=== PATIENT | female | born 1975 | race Caucasian/White ===

== ENCOUNTER 2017-08-27 13:57 | Emergency (ER) | payer SELFPAY ==
[2017-08-27 14:26] LABS: Bilirubin Negative (Negative); Blood, Urine Negative (Negative); Glucose, Urine (Dipstick) Negative (Negative); Ketone, Urine Negative (Negative); Nitrite Negative (Negative); Protein, Urine (Dipstick) Negative (Neg-Trace); Urobilinogen 0.2 mg/dL (0.2-1.0)
[2017-08-27 14:59] LABS: #Eosinphils 0.1 thou/uL (0.0-0.7); #Lymphocytes 2.1 thou/uL (1.20-3.40); #Monocytes 0.4 thou/uL (0.11-0.59); #Neutrophils 5.2 thou/uL (1.40-6.50); %Basophils 0.1 % (0.0-1.0); %Eosinophils 1.9 % (0.0-10.0); %Lymphocytes 26.5 % (21.0-51.0); %Monocytes 5.4 % (0.0-10.0); Hematocrit 38.6 % (36.0-47.0); Mean Platelet Volume 6.8 fL (7.4-10.4); Red Blood Cell (RBC) Count 4.48 mill/uL (4.20-5.40); White Blood Cell (WBC) Count 7.8 thou/uL (4.8-10.8)
[2017-08-27 15:20] LABS: ALT (SGPT) 13 U/L (8-55); AST (SGOT) 9 U/L (5-34); Alkaline Phosphatase 69 U/L (40-150); Anion Gap 9 mmol/L (10-20); BUN (Urea Nitrogen) 9 mg/dL (7.0-18.7); Bilirubin, Total 0.4 mg/dL (0.2-1.2); Calc. Creatinine Clearance 0 mL/min (70-130); Calcium 8.7 mg/dL (7.8-10.44); Carbon Dioxide 27 mmol/L (22-29); Chloride 105 mmol/L (98-107); Estimated GFR-MDRD Greater than 90; Globulin 3.2 g/dL (2.4-3.5); Lipase 7 U/L (8-78); Protein, Total 6.7 g/dL (6.0-8.3)
[2017-08-27] MEDS ORDERED: HYDROcodone/Acetaminophen 5/325 mg Tablet ONE (15:33)
[2017-08-27 16:06] LABS: Amphetamine Not Detected (NotDetected); Methadone Not Detected (NotDetected); Methamphetamine Not Detected (NotDetected)
[2017-08-27] MEDS ORDERED: Ketorolac Tromethamine 30 MG/ML VIAL ONE (16:43)
[2017-08-27] MEDS ORDERED: ISOVUE-370 76%-LOCM 1 ML ONE (17:22)
--- NOTE | 2017-08-27 18:41 | CT ---
CT ABDOMEN AND PELVIS WITH CONTRAST ENHANCEMENT: History: 42-year-old female with abdominal pain. Oral contrast, unfortunately, was not given. IV contrast was administered. FINDINGS: The lung bases are unremarkable. No evidence of free intraperitoneal air is seen. The liver, spleen, and pancreas are unremarkable. The gallbladder has been surgically removed. Adrena l glands and kidneys are unremarkable. There is a nonobstructing upper pole right renal calculus, diameter measuring approximately 6 mm in t he upper pole of the right kidney. The left kidney is unremarkable. No evidence of hydroureteronephro sis is seen. No dilated loops of small bowel or colon are seen. An IUD is present in the uterus. There is a right ovarian cyst or cystic lesion present. IMPRESSION: 1. Right ovary cyst or cystic lesion. 2. Upper pole nonobstructing right renal calculus. POS: [facility]
== END 2017-08-27 18:10 | disposition home or self-care (01) ==
LOC: ERS 13:57
DX: N83.201 Unspecified ovarian cyst, right side (principal); L03.115 Cellulitis of right lower limb; M54.5 Low back pain; E66.9 Obesity, unspecified; Z79.1 Long term (current) use of non-steroidal anti-inflammatories (NSAID)
CPT/HCPCS: 36415; 74177; 80053; 80306; 81003; 81025; 83690; 85025; 96374; J1885

== ENCOUNTER 2017-12-13 13:04 | Emergency (ER) | payer SELFPAY ==
[2017-12-13] MEDS ORDERED: Clindamycin/D5W 600 mg/50 ml Premix Bag ONE (13:31)
[2017-12-13 14:02] LABS: #Basophils 0.1 thou/uL (0.0-0.2); #Eosinphils 0.2 thou/uL (0.0-0.7); #Lymphocytes 1.8 thou/uL (1.20-3.40); #Monocytes 0.4 thou/uL (0.11-0.59); %Basophils 1.4 % (0.0-1.0); %Eosinophils 2.5 % (0.0-10.0); %Lymphocytes 28.5 % (21.0-51.0); %Monocytes 6.1 % (0.0-10.0); %Neutrophils 61.5 % (42.0-75.0); Hemoglobin 12.6 g/dL (12.0-16.0); Mean Corpuscular HGB CONC 32.3 g/dL (32.0-36.0); Mean Corpuscular Hemoglobin 27.9 pg (27.0-31.0); Mean Corpuscular Volume 86.4 fl (81.0-99.0); Platelet Count 275 thou/uL (130-400); RBC Distribution Width 13.8 % (11.5-14.5); Red Blood Cell (RBC) Count 4.52 mill/uL (4.20-5.40); White Blood Cell (WBC) Count 6.5 thou/uL (4.8-10.8)
[2017-12-13 14:22] LABS: Anion Gap 9 mmol/L (10-20); BUN (Urea Nitrogen) 12 mg/dL (7.0-18.7); Calc. Creatinine Clearance 0 mL/min (70-130); Calcium 9.2 mg/dL (7.8-10.44); Carbon Dioxide 24 mmol/L (22-29); Chloride 106 mmol/L (98-107); Estimated GFR-MDRD Greater than 90; Glucose 89 mg/dL (70-105); Potassium 3.9 mmol/L (3.5-5.1); Sodium 135 mmol/L (136-145)
--- NOTE | 2017-12-13 14:51 | RAD ---
RIGHT LEG TWO VIEWS: History: Right leg pain. Comparison: 10-26-16 FINDINGS: The right tibia and fibula are intact. No bony destruction or periosteal reaction is seen to suggest osteomyelitis. Vericosities in the soft tissues of the right leg. Small calcaneal spur is present. IMPRESSION: No acute osseous abnormalities seen. POS: [facility]
== END 2017-12-13 15:00 | disposition home or self-care (01) ==
LOC: ERS 13:04
DX: S81.801D Unspecified open wound, right lower leg, subsequent encounter (principal); L03.115 Cellulitis of right lower limb; E28.2 Polycystic ovarian syndrome; X58.XXXD Exposure to other specified factors, subsequent encounter
CPT/HCPCS: 36415; 80048; 85025; 96365; J3490

== ENCOUNTER 2018-03-07 13:17 | Emergency (ER) | payer OTHER, SELFPAY ==
--- NOTE | 2018-03-07 13:53 | RAD ---
PORTABLE CHEST ONE VIEW: Date: 03-07-18 Time: 1:42 p.m. History: Chest pain. FINDINGS: The heart size is normal. The lungs are expanded without focal areas of consolidation, pneumothorax, or pleural effusions. IMPRESSION: No radiographic evidence of acute cardiopulmonary process. POS: [facility]
[2018-03-07 14:15] LABS: #Eosinphils 0.2 thou/uL (0.0-0.7); #Monocytes 0.6 thou/uL (0.11-0.59); #Neutrophils 6.2 thou/uL (1.40-6.50); %Basophils 0.3 % (0.0-1.0); %Eosinophils 2.6 % (0.0-10.0); %Lymphocytes 22.4 % (21.0-51.0); %Monocytes 6.3 % (0.0-10.0); %Neutrophils 68.4 % (42.0-75.0); Hemoglobin 12.4 g/dL (12.0-16.0); Mean Corpuscular HGB CONC 33.3 g/dL (32.0-36.0); Mean Corpuscular Hemoglobin 27.8 pg (27.0-31.0); Mean Corpuscular Volume 83.6 fL (78.0-98.0); Mean Platelet Volume 6.4 fL (7.4-10.4); Platelet Count 285 thou/uL (130-400); RBC Distribution Width 13.6 % (11.5-14.5); Red Blood Cell (RBC) Count 4.48 mill/uL (4.20-5.40); White Blood Cell (WBC) Count 9.1 thou/uL (4.8-10.8)
[2018-03-07 14:36] LABS: Albumin 3.7 g/dL (3.5-5.0)
[2018-03-07 14:37] LABS: Chloride 105 mmol/L (98-107); Potassium 4.5 mmol/L (3.5-5.1); Sodium 139 mmol/L (136-145)
[2018-03-07 14:38] LABS: Calcium 8.9 mg/dL (7.8-10.44); Globulin 3.3 g/dL (2.4-3.5); Glucose 85 mg/dL (70-105)
[2018-03-07 14:40] LABS: Anion Gap 11 mmol/L (10-20); Bilirubin, Total 0.3 mg/dL (0.2-1.2); Carbon Dioxide 28 mmol/L (22-29)
[2018-03-07 14:41] LABS: Alkaline Phosphatase 79 U/L (40-150); CKMB 0.3 ng/mL (0-6.6); Troponin I Less than 0.010 ng/mL (< 0.028)
[2018-03-07 14:42] LABS: BUN (Urea Nitrogen) 11 mg/dL (7.0-18.7); Calc. Creatinine Clearance 0 mL/min (70-130); Estimated GFR-MDRD Greater than 90
[2018-03-07 14:44] LABS: ALT (SGPT) 12 U/L (8-55); AST (SGOT) 8 U/L (5-34)
[2018-03-07 14:45] LABS: Lipase 11 U/L (8-78)
[2018-03-07 16:01] LABS: CK (CPK) 20 U/L (29-168)
[2018-03-07 16:45] LABS: Troponin I Less than 0.010 ng/mL (< 0.028)
== END 2018-03-07 17:38 | disposition home or self-care (01) ==
LOC: ERS 13:17
DX: R07.89 Other chest pain (principal); I83.019 Varicose veins of right lower extremity with ulcer of unspecified site; E66.9 Obesity, unspecified; E28.2 Polycystic ovarian syndrome; Z79.1 Long term (current) use of non-steroidal anti-inflammatories (NSAID)
CPT/HCPCS: 36415; 71045; 80053; 82553; 83690; 84484; 85025; 93005

== ENCOUNTER 2018-08-08 18:46 | Inpatient (IN) | payer SELFPAY ==
[2018-08-08 19:30] LABS: #Eosinphils 0.2 thou/uL (0.0-0.7); #Lymphocytes 1.4 thou/uL (1.20-3.40); #Monocytes 0.4 thou/uL (0.11-0.59); #Neutrophils 4.2 thou/uL (1.40-6.50); %Basophils 0.1 % (0.0-1.0); %Eosinophils 2.7 % (0.0-10.0); %Monocytes 6.1 % (0.0-10.0); %Neutrophils 68.1 % (42.0-75.0); Hemoglobin 12.6 g/dL (12.0-16.0); Mean Corpuscular HGB CONC 32.6 g/dL (32.0-36.0); Mean Corpuscular Hemoglobin 26.8 pg (27.0-31.0); Mean Corpuscular Volume 82.1 fL (78.0-98.0); Platelet Count 216 thou/uL (130-400); RBC Distribution Width 14.1 % (11.5-14.5); Red Blood Cell (RBC) Count 4.69 mill/uL (4.20-5.40); White Blood Cell (WBC) Count 6.1 thou/uL (4.8-10.8)
[2018-08-08] MEDS ORDERED: Piperacillin/Tazobactam 4.5 GM VIAL ONE (19:40)
[2018-08-08] MEDS ORDERED: Morphine 2 MG/ML SYRINGE ONE (19:40)
[2018-08-08 19:51] LABS: ALT (SGPT) 24 U/L (8-55); AST (SGOT) 19 U/L (5-34); Albumin 3.6 g/dL (3.5-5.0); Alkaline Phosphatase 63 U/L (40-150); Anion Gap 13 mmol/L (10-20); BUN (Urea Nitrogen) 12 mg/dL (7.0-18.7); Bilirubin, Total 0.3 mg/dL (0.2-1.2); Calc. Creatinine Clearance 0 mL/min (70-130); Calcium 8.9 mg/dL (7.8-10.44); Carbon Dioxide 24 mmol/L (22-29); Chloride 107 mmol/L (98-107); Estimated GFR-MDRD Greater than 90; Globulin 3.7 g/dL (2.4-3.5); Glucose 115 mg/dL (70-105); Potassium 3.6 mmol/L (3.5-5.1); Protein, Total 7.3 g/dL (6.0-8.3); Sodium 140 mmol/L (136-145)
[2018-08-08] MEDS ORDERED: Senokot S 8.6-50 MG TAB PO PRN (21:31)
[2018-08-08] MEDS ORDERED: Bisacodyl 5 MG TAB PO PRN (21:31)
[2018-08-08] MEDS ORDERED: Ondansetron ODT 4 MG TAB PO PRN (21:31)
[2018-08-08 22:44] VITALS: BMI 55.7
[2018-08-08] MEDS ORDERED: Morphine 2 MG/ML SYRINGE SLOW IVP PRN (23:54)
[2018-08-09] MEDS: Ketorolac Tromethamine 30 MG/ML VIAL IVP PRN ×2 (00:11→21:28)
[2018-08-09] MEDS ORDERED: Piperacillin/Tazobactam 3.375 GM in Sodium Chloride 0.9% 100 ML IVPB SCH (04:15)
[2018-08-09 05:53] LABS: #Eosinphils 0.1 thou/uL (0.0-0.7); #Lymphocytes 1.4 thou/uL (1.20-3.40); #Monocytes 0.5 thou/uL (0.11-0.59); %Basophils 0.2 % (0.0-1.0); %Eosinophils 1.9 % (0.0-10.0); %Lymphocytes 23.2 % (21.0-51.0); %Neutrophils 66.8 % (42.0-75.0); Hemoglobin 10.9 g/dL (12.0-16.0); Mean Corpuscular HGB CONC 31.6 g/dL (32.0-36.0); Mean Corpuscular Hemoglobin 26.1 pg (27.0-31.0); Mean Corpuscular Volume 82.6 fL (78.0-98.0); Mean Platelet Volume 7.8 fL (7.4-10.4); Platelet Count 214 thou/uL (130-400); RBC Distribution Width 14.1 % (11.5-14.5); Red Blood Cell (RBC) Count 4.19 mill/uL (4.20-5.40); White Blood Cell (WBC) Count 5.9 thou/uL (4.8-10.8)
[2018-08-09 06:13] LABS: Anion Gap 11 mmol/L (10-20); BUN (Urea Nitrogen) 11 mg/dL (7.0-18.7); Calc. Creatinine Clearance 339 mL/min (70-130); Calcium 8.2 mg/dL (7.8-10.44); Carbon Dioxide 22 mmol/L (22-29); Chloride 107 mmol/L (98-107); Estimated GFR-MDRD Greater than 90; Glucose 115 mg/dL (70-105); Potassium 3.4 mmol/L (3.5-5.1); Sodium 137 mmol/L (136-145)
--- NOTE | 2018-08-09 07:14 | HP ---
CHIEF COMPLAINT: Right leg swelling. HISTORY OF PRESENT ILLNESS: This is a 43-year-old female with history of right lower extremity cellu litis who is presenting to the hospital with a chief complaint of right leg swelling with associated gangrenous lesions and redness. Per the patient, she has not been feeling too well this week. The p atient states that she has been having some fevers and some chills. The patient reports that she has had a history of chronic cellulitis of the right leg, but now it has been worsened and is getting wo rse and there is severe pain at the right leg and that prompted the ED visit. At this point, the pat ient states that the pain is 10/10. The patient stated that the pain is sharp in nature, localized a t the right leg and she has had associated fever. The patient denies any headache, dizziness, nausea , vomiting, chest pain, palpitations, abdominal pain, dysuria, hematuria, melena. REVIEW OF SYSTEMS: Positive for fever and right lower extremity pain with erythema and lesions. PAST MEDICAL HISTORY: Polycystic ovarian disease, obesity, varicose ulcers at the leg, chronic lower extremity leg wound for the past 2 years. PAST SURGICAL HISTORY: x1, cholecystectomy, vein stripping in 1999. PSYCHIATRIC HISTORY: No psych history. SOCIAL HISTORY: The patient lives at home with family. Denies alcohol use, denies illicit drug use and denies any smoking history. ALLERGIES: Patient is allergic to LEVAQUIN. CURRENT MEDICATIONS: The patient takes ibuprofen 800 mg b.i.d. for pain. FAMILY HISTORY: Reviewed and noncontributory to this visit. PHYSICAL EXAMINATION: VITAL SIGNS: Blood pressure is 147/75, pulse of 109, respiratory rate of 18, temperature of 98.4, pa in of 10, oxygen saturation of 97. GENERAL: The patient is lying in bed, very sleepy, able to speak to me in full sentences, does not c omplain of any pain at this time, not in any acute distress. HEENT: Normocephalic, atraumatic. Pupils are equally round and reactive to light. Extraocular move ments are intact. No scleral icterus. Mucous membranes are dry. NECK: No JVD. Trachea is midline. No meningeal signs. Full range of motion. LUNGS: Clear to auscultation bilaterally. No wheezing, no rales, no rhonchi is appreciated. CARDIOVASCULAR: Positive S1, S2, regular rate and rhythm, no murmurs, no gallops or rubs appreciated . ABDOMEN: Obese abdomen, soft, nontender, nondistended. No masses. No pulsatile masses. EXTREMITIES: A 5/5 upper extremity strength, good pulses bilaterally. No edema noted. For the lowe r extremity, the patient has right lower erythema all the way up to the knee, circumferential celluli tis with some chronic gangrenous lesions at the leg with pus and yellowish fluid draining from the lo wer extremity. NEUROLOGIC: Cranial nerves II through XII grossly intact. No neurologic deficits noted. LABORATORY DATA: WBC 6.1, hemoglobin is 12.6, hematocrit is 38.5, MCV is 82.1, RDW is 14.1. Sodium is 140, potassium is 3.6, chloride 107, carbon dioxide of 24, anion gap of 13, BUN is 12, creatinine is 0.69, glucose 115. Lactic acid of 1.1. ASSESSMENT AND PLAN: This is a 43-year-old female with a history of chronic cellulitis of the right lower extremity, presenting with worsening cellulitic lesions extending to the knee with gangrenous w ounds and lesions. At this time, we will start the patient on vancomycin and Zosyn. We will continu e the patient on these medications. We will monitor the patient's labs in the a.m. We will follow u p on cultures. 1. Obesity. The patient will benefit from diet and exercise. 2. Polycystic ovarian disease, currently stable. We will monitor the patient. 3. Deep venous thrombosis and gastrointestinal prophylaxis.
[2018-08-09] MEDS ORDERED: Sodium Chloride 0.9% 1,000 ML IV SCH (07:45)
[2018-08-09] MEDS ORDERED: Famotidine/PF 20 mg/2ml Vial SLOW IVP SCH (09:00)
[2018-08-09] MEDS: Famotidine 20 MG TAB PO SCH ×2 (09:17→19:56)
[2018-08-09] MEDS: NS 0.9% w/ 20 MEQ KCL 1,000 ML/1,000 ML BAG IV SCH (09:17)
[2018-08-09] MEDS: Enoxaparin Sodium 40 MG/0.4 ML SYRINGE SC SCH (09:17)
[2018-08-09] MEDS ORDERED: Cepastat Lozenges 1 LOZ PO PRN (10:48)
[2018-08-09] MEDS ORDERED: Lidocaine Viscous Sol 2% 15 ml UD Cup SSP PRN (10:52)
[2018-08-09] MEDS ORDERED: Eucerin (Mineral Oil/Petrolatum,White) 30 gm Jar TOP PRN (10:55)
[2018-08-09] MEDS: Piperacillin/Tazobactam 3.375 GM in Sodium Chloride 0.9% 100 ML IVPB SCH ×2 (12:22→17:15)
[2018-08-09] MEDS: Acetaminophen 325 MG TAB PO PRN (15:26)
--- NOTE | 2018-08-09 16:12 | PDOC.PN ---
- Subjective Encounter Start Date: 08/09/18 Encounter Start Time: 09:30 Patient seen and examined for Cellulitis. Feels slightly better. No new complaints. No overnight events - Objective Resuscitation Status: Resuscitation Status FULL:Full Resuscitation MAR Reviewed: Yes Vital Signs & Weight: Vital Signs (12 hours) Temp Pulse Resp BP Pulse Ox 08/09/18 16:02 98.7 F 81 20 127/79 96 08/09/18 11:12 98.9 F 81 18 114/74 96 08/09/18 08:00 96 08/09/18 07:14 98.5 F 81 20 116/74 96 Weight Admit Weight 345 lb Weight 345 lb 1.6 oz Result Diagrams: 08/10/18 04:48 08/10/18 04:48 Phys Exam - Physical Examination Constitutional: NAD Respiratory: no wheezing, no rhonchi Cardiovascular: RRR, no rub Gastrointestinal: soft, positive bowel sounds Musculoskeletal: edema present Neurological: moves all 4 limbs Dx/Plan - Plan DVT proph w/lovenox 1. RLE Cellulitis with infected venous ulcerations 2. Morbid obesity BMI 55.7 3. Hypokalemia 4. PCOD 5. Levaquin allergy PLAN: Cont Vancomycin and Zosyn Replace Potassium Monitor Vancomycin level AM labs Review of Systems - Review of Systems Respiratory: negative: Cough, Dry, Shortness of Breath, Hemoptysis, SOB with Excertion, Pleuritic Pain, Sputum, Wheezing Cardiovascular: negative: chest pain, palpitations, orthopnea, paroxysmal nocturnal dyspnea, edema, light headedness, other - Medications/Allergies Allergies/Adverse Reactions: Allergies Allergy/AdvReac Type Severity Reaction Status Date / Time levofloxacin [From Levaquin] Allergy Intermediate Hives Verified 08/09/18 00:50 Medications: Current Medications Acetaminophen (Tylenol) 650 mg PO Q4H PRN PRN Reason: Headache/Fever/Mild Pain (1-3) Last Admin: 08/09/18 15:26 Dose: 650 mg Bisacodyl (Dulcolax) 10 mg PO DAILYPRN PRN PRN Reason: Constipation Enoxaparin Sodium (Lovenox) 40 mg SC 0900 [facility] Last Admin: 08/09/18 09:17 Dose: Not Given Famotidine (Pepcid) 20 mg PO BID [facility] Last Admin: 08/09/18 09:17 Dose: 20 mg Piperacillin Sod/Tazobactam (Sod 3.375 gm/ Sodium Chloride) 100 mls @ 200 mls/ hr IVPB Q6HR [facility] Last Admin: 08/09/18 12:22 Dose: 100 mls Potassium Chloride/Sodium Chloride (Ns 0.9% W/ 20 Meq Kcl) 1,000 ml in 1,000 mls @ 75 mls/hr IV .[id number] [facility] Last Admin: 08/09/18 09:17 Dose: 1,000 mls Vancomycin HCl 2 gm/ Sodium (Chloride) 500 mls @ 250 mls/hr IVPB 0100,0900, 1700 [facility] Ketorolac Tromethamine (Toradol) 15 mg IVP Q6H PRN PRN Reason: Pain Stop: 08/09/18 23:54 Last Admin: 08/09/18 00:11 Dose: 15 mg Lidocaine HCl (Xylocaine 2% Viscous) 15 ml SSP TID PRN PRN Reason: Oral sores Mineral Oil/White Petrolatum (Eucerin Cream) 0 gm TOP BIDPRN PRN PRN Reason: Dry Skin Miscellaneous Medication (Pharmacy To Dose) 1 each IVPB ONE PRN PRN Reason: Pharmacy to dose Stop: 08/18/18 21:32 Ondansetron HCl (Zofran Odt) 4 mg PO Q6H PRN PRN Reason: Nausea/Vomiting Ondansetron HCl (Zofran) 4 mg IVP Q6H PRN PRN Reason: Nausea/Vomiting Senna/Docusate Sodium (Senokot S) 2 tab PO BID PRN PRN Reason: Constipation Sodium Chloride (Flush - Normal Saline) 10 ml IVF Q12HR PRN PRN Reason: Saline Flush Sodium Chloride (Flush - Normal Saline) 10 ml IVF PRN PRN PRN Reason: Saline Flush Throat Lozenges (Cepastat Lozenges) 1 oumar PO Q2H PRN PRN Reason: Sore Throat
--- NOTE | 2018-08-09 19:51 | CON ---
DATE OF CONSULTATION: 08/09/2018 REQUESTING PHYSICIAN: Jimi Sharif MD CHIEF COMPLAINT: Leg ulcers and pain. HISTORY OF PRESENT ILLNESS: The patient is a 43-year-old woman with known venous stasis disease. She presented with a painful cellulitic changes involving much of her right lower leg and says that she is quite susceptible to cellulitis. She says that she has had chronic and recurrent problems with ulcerations in that leg for about 2 years. PAST MEDICAL HISTORY: Significant for polycystic ovary disease. PAST SURGICAL HISTORY: She had a previous , cholecystectomy, and vein stripping. MEDICATIONS: The patient only takes ibuprofen. ALLERGIES: She reports LEVAQUIN causes itching. FAMILY HISTORY: Significant for her father having chronic problems with venous stasis ulceration. REVIEW OF SYSTEMS: Significant for her leg pain, malaise, fever, and chills. It is negative for any claudication symptoms. PHYSICAL EXAMINATION: GENERAL: She is an obese woman in no distress with the right leg propped up. VITAL SIGNS: Temperature is 98.5, heart rate 81, blood pressure 116/74, room air O2 sats are 96%. LUNGS: She has clear breath sounds. CARDIOVASCULAR: Regular rate and rhythm. EXTREMITIES: She has blanching erythema involving most of the right lower leg. She has several shallow ulcerations in the pretibial region of the right lower leg with adherent moist eschar. The largest of these is probably about 4 x 8 cm in size. All of these ulcers are within an area of chronic venous stasis pigmentation changes. She has some less pronounced venous stasis changes in the left lower extremity. Both feet have easily palpable dorsalis pedis pulses. LABORATORY DATA: White count is 5.9, hemoglobin 10.9, glucose 115, BUN 11, creatinine 0.54. IMPRESSION AND RECOMMENDATIONS: Venous stasis ulcerations with cellulitic complications. The patient at least voices an understanding of the importance of compression garments in control of edema. She has adequate arterial circulation in the mainstay of therapy beyond antibiotics to clear the cellulitis is control of edema while low tech and old fashioned, unna boots still worked very well for this problem to get the ulcerations to heal up. The patient volunteered that she knew she needs Jobst stockings to keep the edema under control. There is no indication for any further vascular workup or intervention. [facility]
[2018-08-09] MEDS: Ondansetron PF 4 MG/2 ML Vial IVP PRN (21:37)
[2018-08-10] MEDS: Piperacillin/Tazobactam 3.375 GM in Sodium Chloride 0.9% 100 ML IVPB SCH ×5 (00:26→23:56)
[2018-08-10] MEDS: NS 0.9% w/ 20 MEQ KCL 1,000 ML/1,000 ML BAG IV SCH ×2 (00:27→08:24)
[2018-08-10 00:40] LABS: Vancomycin, Trough 19.2 ug/mL
[2018-08-10 05:03] LABS: #Eosinphils 0.2 thou/uL (0.0-0.7); #Lymphocytes 1.7 thou/uL (1.20-3.40); #Monocytes 0.8 thou/uL (0.11-0.59); #Neutrophils 3.6 thou/uL (1.40-6.50); %Basophils 0.4 % (0.0-1.0); %Eosinophils 3.7 % (0.0-10.0); %Lymphocytes 26.6 % (21.0-51.0); %Monocytes 12.3 % (0.0-10.0); Hemoglobin 10.4 g/dL (12.0-16.0); Mean Corpuscular HGB CONC 30.8 g/dL (32.0-36.0); Mean Corpuscular Hemoglobin 26.1 pg (27.0-31.0); Mean Corpuscular Volume 84.6 fL (78.0-98.0); Mean Platelet Volume 8.1 fL (7.4-10.4); Platelet Count 191 thou/uL (130-400); RBC Distribution Width 14.1 % (11.5-14.5); Red Blood Cell (RBC) Count 3.97 mill/uL (4.20-5.40); White Blood Cell (WBC) Count 6.4 thou/uL (4.8-10.8)
[2018-08-10 05:26] LABS: Anion Gap 11 mmol/L (10-20); BUN (Urea Nitrogen) 8 mg/dL (7.0-18.7); Calc. Creatinine Clearance 305 mL/min (70-130); Calcium 7.9 mg/dL (7.8-10.44); Carbon Dioxide 22 mmol/L (22-29); Chloride 110 mmol/L (98-107); Estimated GFR-MDRD Greater than 90; Glucose 118 mg/dL (70-105); Magnesium 1.9 mg/dL (1.6-2.6); Potassium 3.9 mmol/L (3.5-5.1); Sodium 139 mmol/L (136-145)
[2018-08-10] MEDS: Famotidine 20 MG TAB PO SCH ×2 (08:22→19:59)
[2018-08-10] MEDS: Acetaminophen 325 MG TAB PO PRN (08:23)
[2018-08-10] MEDS: Enoxaparin Sodium 40 MG/0.4 ML SYRINGE SC SCH (08:23)
[2018-08-10] MEDS: Ondansetron PF 4 MG/2 ML Vial IVP PRN ×3 (08:23→22:28)
[2018-08-10] MEDS: Vancomycin HCl 1.5 GM in Sodium Chloride 0.9% 250 ML 300 ML IVPB SCH ×2 (08:24→18:40)
[2018-08-10] MEDS ORDERED: traMADol HCl 50 MG TAB PO PRN (16:39)
[2018-08-10] MEDS ORDERED: Calcium Carbonate 500 MG ChewTAB PO PRN (16:39)
[2018-08-10] MEDS ORDERED: Mag-Al 1200 mg/1200 mg/30 ML UDCUP PO PRN (16:39)
[2018-08-10] MEDS: Ibuprofen 200 MG TAB PO PRN (16:51)
--- NOTE | 2018-08-10 22:09 | PDOC.PN ---
- Subjective Encounter Start Date: 08/10/18 Encounter Start Time: 11:00 Patient seen and examined for cellulitis. No new complaints. No overnight events - Objective Resuscitation Status: Resuscitation Status FULL:Full Resuscitation MAR Reviewed: Yes Vital Signs & Weight: Vital Signs (12 hours) Temp Pulse Resp BP BP Pulse Ox 08/10/18 19:20 98 F 82 16 121/76 94 L 08/10/18 16:27 98.9 F 82 16 127/83 98 Weight Admit Weight 345 lb Weight 345 lb 1.6 oz I&O: 08/09/18 08/10/18 08/11/18 06:59 06:59 06:59 Intake Total 4600 Balance 4600 Result Diagrams: 08/10/18 04:48 08/10/18 04:48 Phys Exam - Physical Examination Constitutional: NAD Respiratory: no wheezing, no rhonchi Cardiovascular: RRR, no rub Gastrointestinal: soft, non-tender, positive bowel sounds Musculoskeletal: edema present RLE dressing + Neurological: moves all 4 limbs Psychiatric: A&O x 3 Dx/Plan - Plan DVT proph w/lovenox, DVT proph w/SCDs 1. RLE Cellulitis with infected venous ulcerations 2. Morbid obesity BMI 55.7 3. Hypokalemia 4. PCOD 5. Levaquin allergy PLAN: Cont Vancomycin and Zosyn Blood culture negative Monitor Vancomycin level Review of Systems - Review of Systems Respiratory: negative: Cough, Dry, Shortness of Breath, Hemoptysis, SOB with Excertion, Pleuritic Pain, Sputum, Wheezing Cardiovascular: negative: chest pain, palpitations, orthopnea, paroxysmal nocturnal dyspnea, edema, light headedness, other - Medications/Allergies Allergies/Adverse Reactions: Allergies Allergy/AdvReac Type Severity Reaction Status Date / Time levofloxacin [From Levaquin] Allergy Intermediate Hives Verified 08/09/18 00:50 Medications: Current Medications Acetaminophen (Tylenol) 650 mg PO Q4H PRN PRN Reason: Headache/Fever/Mild Pain (1-3) Last Admin: 08/10/18 08:23 Dose: 650 mg Al Hydroxide/Mg Hydroxide (Maalox) 30 ml PO Q6H PRN PRN Reason: Heartburn or Indigestion Last Admin: 08/10/18 16:51 Dose: 30 ml Bisacodyl (Dulcolax) 10 mg PO DAILYPRN PRN PRN Reason: Constipation Last Admin: 08/10/18 19:59 Dose: 10 mg Calcium Carbonate (Tums) 1,000 mg PO Q4H PRN PRN Reason: Heartburn or Indigestion Enoxaparin Sodium (Lovenox) 40 mg SC 0900 [facility] Last Admin: 08/10/18 08:23 Dose: 40 mg Famotidine (Pepcid) 20 mg PO BID [facility] Last Admin: 08/10/18 19:59 Dose: 20 mg Piperacillin Sod/Tazobactam (Sod 3.375 gm/ Sodium Chloride) 100 mls @ 200 mls/ hr IVPB Q6HR [facility] Last Admin: 08/10/18 16:54 Dose: 100 mls Vancomycin HCl 1.5 gm/ Sodium (Chloride) 300 mls @ 200 mls/hr IVPB 0100,0900, 1700 [facility] Stop: 08/10/18 23:59 Last Admin: 08/10/18 18:40 Dose: 300 mls Potassium Chloride/Sodium Chloride (Ns 0.9% W/ 20 Meq Kcl) 1,000 ml in 1,000 mls @ 50 mls/hr IV .Q20H [facility] Last Admin: 08/10/18 08:24 Dose: Not Given Vancomycin HCl 1.5 gm/ Sodium (Chloride) 300 mls @ 200 mls/hr IVPB 0400,1200, 2000 [facility] Ibuprofen (Motrin) 400 mg PO Q6H PRN PRN Reason: Moderate Pain (4-6) Last Admin: 08/10/18 16:51 Dose: 400 mg Lidocaine HCl (Xylocaine 2% Viscous) 15 ml SSP TID PRN PRN Reason: Oral sores Mineral Oil/White Petrolatum (Eucerin Cream) 0 gm TOP BIDPRN PRN PRN Reason: Dry Skin Miscellaneous Medication (Pharmacy To Dose) 1 each IVPB ONE PRN PRN Reason: Pharmacy to dose Stop: 08/18/18 21:32 Ondansetron HCl (Zofran Odt) 4 mg PO Q6H PRN PRN Reason: Nausea/Vomiting Ondansetron HCl (Zofran) 4 mg IVP Q6H PRN PRN Reason: Nausea/Vomiting Last Admin: 08/10/18 13:25 Dose: 4 mg Senna/Docusate Sodium (Senokot S) 2 tab PO BID PRN PRN Reason: Constipation Last Admin: 08/10/18 15:28 Dose: 2 tab Sodium Chloride (Flush - Normal Saline) 10 ml IVF Q12HR PRN PRN Reason: Saline Flush Sodium Chloride (Flush - Normal Saline) 10 ml IVF PRN PRN PRN Reason: Saline Flush Throat Lozenges (Cepastat Lozenges) 1 oumar PO Q2H PRN PRN Reason: Sore Throat Last Admin: 08/09/18 17:15 Dose: 1 oumar Tramadol HCl (Ultram) 50 mg PO Q4H PRN PRN Reason: Severe Pain (7-10)
[2018-08-11] MEDS: NS 0.9% w/ 20 MEQ KCL 1,000 ML/1,000 ML BAG IV SCH (03:21)
[2018-08-11] MEDS ORDERED: Vancomycin HCl 1.5 GM in Sodium Chloride 0.9% 250 ML 300 ML IVPB SCH (04:00)
[2018-08-11] MEDS: Ibuprofen 200 MG TAB PO PRN ×3 (04:56→20:36)
[2018-08-11] MEDS: Piperacillin/Tazobactam 3.375 GM in Sodium Chloride 0.9% 100 ML IVPB SCH ×2 (06:11→11:14)
[2018-08-11] MEDS: Enoxaparin Sodium 40 MG/0.4 ML SYRINGE SC SCH (09:00)
[2018-08-11] MEDS: Ondansetron PF 4 MG/2 ML Vial IVP PRN ×2 (09:00→16:19)
[2018-08-11] MEDS: Famotidine 20 MG TAB PO SCH ×2 (09:00→20:36)
[2018-08-11 11:11] LABS: Vancomycin, Trough 26.2 ug/mL
--- NOTE | 2018-08-11 12:47 | CON ---
DATE OF CONSULTATION: 08/09/2018 REASON: Right lower extremity cellulitis. HISTORY OF PRESENT ILLNESS: A 43-year-old with history of polycystic ovarian syndrome, obesity, venous insufficiency, and chronic leg ulcers in the right side which have been managed with wound care and compression dressings. The patient has not been adherent to the compressive dressings because of her activity, the fact that she has difficulty wearing compression stocking during her work schedule. She is admitted now with right leg inflammatory process. I believe the skin ulcers have improved quite a bit. They used to be deep and now they are quite flush with the skin surface, but they have not yet closed. The main reason she came to the hospital is because of worsening pain in the midline. No fever or chills. No headaches, no visual symptoms, n/v, hematochezia or melena. No chest pain, no abdominal pain. No genitourinary symptoms, no joint symptoms. PAST MEDICAL HISTORY: Polycystic ovarian syndrome, obesity, venous insufficiency with ulcerations in the right leg, those have improved, one prior episode of cellulitis. PAST SURGICAL HISTORY: , cholecystectomy, vein stripping. SOCIAL HISTORY: Never a smoker. Lives at home with family. ALLERGIES: LEVOFLOXACIN with rash. CURRENT MEDICATIONS: She is on Zosyn and vancomycin in addition to p.r.n. meds. FAMILY HISTORY: Noncontributory. PHYSICAL EXAMINATION: VITALS: BP 140/70, pulse 102, respirations 18, temperature 98.4, O2 sat 97%. GENERAL: Appears in no distress, pleasant. None of the leg has those round shaped with a beefy-red surface of the base. The surface of the base is pretty flushed with the skin surface. There is surrounding erythema around in this area extending to the area immediately below the knee and circumferential distribution to the ulcers . No lymphadenopathy. HEENT: Noncontributory. NECK: Supple. LUNGS: Symmetric with clear breath sounds to auscultation. ABDOMEN: Soft, not distended or tender. No bladder distention. CARDIOVASCULAR: Normal sinus rhythm, S1S2, no S3 EXTREMITIES: No joint inflammatory activity. She does develop some pain in the right knee, a little bit of difficulty with range of motion, but she is able to flex the knee. Pulses are 1+ in dorsalis pedis. NEUROLOGIC: Nonfocal. LABORATORY DATA: White cell count 6.1 and creatinine 0.54. ASSESSMENT: Venous insufficiency with venous stasis ulcerations, which is steadily improving and now flush against the skin layer, but still the patient has developed cellulitis of the leg. Typically, those were secondary to beta hemolytic streptococcus. Would recommend transition to IV Rocephin. Eventual switch to Keflex for d/c planning. Would advise after completion of the acute phase of treatment, transitioning patient to penicillin VK 250 mg twice daily for suppressive therapy. The patient will need to find a suitable compression device to allow management of her ulcers and insufficiency. She may want to consult with lymphedema nurse at the rehabilitation. Another option would be a Farrow Wrap compression device. [facility]
[2018-08-11] MEDS: cefTRIAXone\\ROCEPHIN 2 GM in Sodium Chloride 0.9% 100 ML IVPB SCH (13:38)
[2018-08-11] MEDS: Acetaminophen 325 MG TAB PO PRN (16:19)
--- NOTE | 2018-08-11 17:30 | PDOC.PN ---
- Subjective Encounter Start Date: 08/11/18 Encounter Start Time: 10:00 Patient seen and examined for Cellulitis. No new complaints. No overnight events - Objective Resuscitation Status: Resuscitation Status FULL:Full Resuscitation MAR Reviewed: Yes Vital Signs & Weight: Vital Signs (12 hours) Temp Pulse Resp BP Pulse Ox 08/11/18 08:00 95 08/11/18 07:10 98.4 F 74 18 94/62 95 Weight Admit Weight 345 lb Weight 345 lb 1.6 oz I&O: 08/10/18 08/11/18 08/12/18 06:59 06:59 06:59 Intake Total 7026 Balance 7026 Result Diagrams: 08/10/18 04:48 08/10/18 04:48 Phys Exam - Physical Examination Constitutional: NAD Respiratory: no wheezing, no rhonchi Cardiovascular: RRR, no rub Gastrointestinal: soft, non-tender, positive bowel sounds Musculoskeletal: edema present LE dressing noted. Erythema around the dressing + Neurological: moves all 4 limbs Dx/Plan - Plan DVT proph w/SCDs 1. RLE Cellulitis with infected venous ulcerations 2. Morbid obesity BMI 55.7 3. Hypokalemia 4. PCOD 5. Levaquin allergy PLAN: Cont Ceftriaxone for 1-2 days per ID Will need suppressive therapy Cont wound care Ambulate Monitor Vancomycin level Review of Systems - Review of Systems Cardiovascular: negative: chest pain, palpitations, orthopnea, paroxysmal nocturnal dyspnea, edema, light headedness, other Gastrointestinal: negative: Nausea, Vomiting, Abdominal Pain, Diarrhea, Constipation, Melena, Hematochezia, Other - Medications/Allergies Allergies/Adverse Reactions: Allergies Allergy/AdvReac Type Severity Reaction Status Date / Time levofloxacin [From Levaquin] Allergy Intermediate Hives Verified 08/09/18 00:50 Medications: Current Medications Acetaminophen (Tylenol) 650 mg PO Q4H PRN PRN Reason: Headache/Fever/Mild Pain (1-3) Last Admin: 08/11/18 16:19 Dose: 650 mg Al Hydroxide/Mg Hydroxide (Maalox) 30 ml PO Q6H PRN PRN Reason: Heartburn or Indigestion Last Admin: 08/10/18 16:51 Dose: 30 ml Bisacodyl (Dulcolax) 10 mg PO DAILYPRN PRN PRN Reason: Constipation Last Admin: 08/10/18 19:59 Dose: 10 mg Calcium Carbonate (Tums) 1,000 mg PO Q4H PRN PRN Reason: Heartburn or Indigestion Enoxaparin Sodium (Lovenox) 40 mg SC 0900 [facility] Last Admin: 08/11/18 09:00 Dose: 40 mg Famotidine (Pepcid) 20 mg PO BID [facility] Last Admin: 08/11/18 09:00 Dose: 20 mg Potassium Chloride/Sodium Chloride (Ns 0.9% W/ 20 Meq Kcl) 1,000 ml in 1,000 mls @ 50 mls/hr IV .Q20H [facility] Last Admin: 08/11/18 03:21 Dose: 1,000 mls Ceftriaxone Sodium 2 gm/ (Sodium Chloride) 100 mls @ 200 mls/hr IVPB Q24HR [facility] Last Admin: 08/11/18 13:38 Dose: 100 mls Ibuprofen (Motrin) 400 mg PO Q6H PRN PRN Reason: Moderate Pain (4-6) Last Admin: 08/11/18 11:23 Dose: 400 mg Lidocaine HCl (Xylocaine 2% Viscous) 15 ml SSP TID PRN PRN Reason: Oral sores Mineral Oil/White Petrolatum (Eucerin Cream) 0 gm TOP BIDPRN PRN PRN Reason: Dry Skin Ondansetron HCl (Zofran Odt) 4 mg PO Q6H PRN PRN Reason: Nausea/Vomiting Ondansetron HCl (Zofran) 4 mg IVP Q6H PRN PRN Reason: Nausea/Vomiting Last Admin: 08/11/18 16:19 Dose: 4 mg Senna/Docusate Sodium (Senokot S) 2 tab PO BID PRN PRN Reason: Constipation Last Admin: 08/10/18 15:28 Dose: 2 tab Sodium Chloride (Flush - Normal Saline) 10 ml IVF Q12HR PRN PRN Reason: Saline Flush Sodium Chloride (Flush - Normal Saline) 10 ml IVF PRN PRN PRN Reason: Saline Flush Throat Lozenges (Cepastat Lozenges) 1 oumar PO Q2H PRN PRN Reason: Sore Throat Last Admin: 08/09/18 17:15 Dose: 1 oumar Tramadol HCl (Ultram) 50 mg PO Q4H PRN PRN Reason: Severe Pain (7-10)
--- NOTE | 2018-08-11 18:38 | PRG ---
DATE OF SERVICE: 08/11/2018 SUBJECTIVE: Ms. Tovar is feeling better, less pain. No respiratory symptoms or abdominal pain. Some diarrhea. PHYSICAL EXAMINATION: VITAL SIGNS: Normal. GENERAL: Awake, alert, oriented. LUNGS: Clear. HEART: S1, S2, regular rate. ABDOMEN: Soft, not distended or tender. LABORATORY DATA: Show marked decrease in erythema, less tenderness. Blood cultures are negative. ASSESSMENT AND DISCUSSION: Venous stasis with ulcerations, lower extremities, with improvement, but now cellulitis around the ulcers, particularly left side. Consider transitioning to oral Keflex for discharge planning in the next day or two. Eventual transition to suppressive Pen-Vee K 250 mg twice daily for a year and compression dressing.
--- NOTE | 2018-08-11 19:15 | CON ---
DATE OF CONSULTATION: 08/11/2018 HISTORY OF PRESENT ILLNESS: A 43-year-old patient who has a history of polycystic ovarian syndrome, obesity, and venous insufficiency with chronic stasis ulceration in right and left lower extremities for the past many months which has been managed with a compressive device and wound care management. The patient has noted significant improvement in the appearance of the ulcers, which previously had a much deeper structure and now pretty much flush against the surface of the skin with good granulation tissue. Unfortunately, she has developed worsening inflammatory changes in the right leg which persisted associated with a little bit temp elevation and chills, and she has been admitted for management. The patient denies any headaches, visual symptoms, dysphagia, no dyspnea, no cough. No vomiting, hematemesis, or melena. No genitourinary symptoms. No joint symptoms. No neurological symptoms. PAST MEDICAL HISTORY: Polycystic ovarian syndrome, obesity, venous insufficiency, chronic stasis ulcers which have improved over the past few months with wound care and compressive dressings. PAST SURGICAL HISTORY: , cholecystectomy, vein stripping many years ago. SOCIAL HISTORY: Never a smoker. Lives at home with family I believe it. ALLERGIES: LEVOFLOXACIN with rash. FAMILY HISTORY: Noncontributory. CURRENT MEDICATION LIST: Includes Tylenol, Maalox, Dulcolax, Tums, Lovenox, Pepcid, Motrin, ondansetron, Zofran, Zosyn, and vancomycin. PHYSICAL EXAMINATION: VITAL SIGNS: T-max 98.9, blood pressure 94/62, pulse 74, respirations 18, O2 sat 94%. GENERAL: Appears in some distress when the right leg is touched. SKIN: Shows the round oval-shaped ulcers in the right leg. One of them had a red base. The other ones were smaller and had a yellow base with surrounding erythema which extended from the area immediately below the knee all the way to the right ankle. She has a peripheral IV access and voiding in the toilet. No lymphadenopathy. HEENT: Noncontributory. NECK: Supple. LUNGS: With symmetric clear breath sounds. HEART: S1, S2, regular rate. No S3, S4. ABDOMEN: Soft, not distended or tender. No ascites. No bladder distention. EXTREMITIES: Pulses are 1+ in dorsalis pedis. She has normal capillary refill. She moves extremities equally with some limitations imposed by the inflammatory process in the right leg. NEUROLOGIC: Cognitive function appears to be intact. LABORATORY DATA: White cell count 6.1, hemoglobin 12.6, platelets 216, and they have next few days. Chemistry is not particularly remarkable. Globulin 3.7. Vancomycin trough 19.2. Microbiology with negative blood cultures, no imaging studies. ASSESSMENT: Polycystic ovarian syndrome with venous insufficiency, chronic stasis ulcerations which have improved over the past few months, but now there has been development of cellulitis around the areas in the right leg. This is associated with pain and low grade temperature elevation. The most likely scenario is beta-hemolytic streptococcal cellulitis. Staphylococcal and gram- negative cellulitis is not ruled out. We will transition patient to Rocephin and then eventually to Keflex. If there is successful resolution clinically inflammatory process. She will have to comply better with compressive dressings at home and one of the reasons that she has not been able to maintain compression devices because of these stockings that may be slide down whenever she is working. 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 She may want to try a Farrowwrap or similar device which may be more successful weaning and maintaining compression in the right lower extremity. I would also advise a chronic suppression with a Pen-Vee K 250 mg twice daily for a year and after the resolution of the current acute process. There is no evidence of distant involvement at this time. ELMERD
[2018-08-12] MEDS: Acetaminophen 325 MG TAB PO PRN (04:16)
[2018-08-12] MEDS: NS 0.9% w/ 20 MEQ KCL 1,000 ML/1,000 ML BAG IV SCH (05:29)
[2018-08-12] MEDS: Ibuprofen 200 MG TAB PO PRN (08:18)
[2018-08-12] MEDS: Enoxaparin Sodium 40 MG/0.4 ML SYRINGE SC SCH (08:19)
[2018-08-12] MEDS: Famotidine 20 MG TAB PO SCH (08:19)
[2018-08-12] MEDS: cefTRIAXone\\ROCEPHIN 2 GM in Sodium Chloride 0.9% 100 ML IVPB SCH (10:36)
--- NOTE | 2018-08-12 11:40 | DIS ---
DATE OF DISCHARGE: 08/12/2018 DISCHARGE DISPOSITION: Home. FOLLOWUP: 1. Follow up with primary care physician at [facility] in 1 week. 2. Follow up with Infectious Disease, Dr. Clarke in 10 days. ALLERGIES: The patient is allergic to LEVAQUIN. DISCHARGE MEDICATIONS: Keflex 500 mg every 6 hourly for next 7 days. Pen-Vee K 250 mg twice daily f or 1 year along with compression dressing for suppressive therapy. Primary care physician advised to provide a Pen-Vee K. Patient was seen on the day of discharge, denies any new complaints, no chest pain, shortness of breath, palpitations. Lower extremity erythema has significantly improved. BRIEF HOSPITAL COURSE: The patient is a 43-year-old female with chronic venous stasis with ulceratio n, presented to the emergency room with worsening swelling along with erythema in the right lower ext remity. Please refer to the history and physical for further details. The patient was admitted to the hospital with a diagnosis of right lower extremity cellulitis with in fected venous ulceration. The patient was evaluated by Cardiovascular, Dr. Posey as well as In fectious Disease, Dr. Clarke. She showed good improvement with IV antibiotics. She received wound ca re during this hospital stay. The patient was advised to follow up with outpatient [facility] . She was advised to continue compression dressing. She will need Pen-Vee K prophylaxis for a year after completion of Keflex. She has been cleared by consultants for discharge. FINAL DIAGNOSES: 1. Right lower extremity cellulitis with infected venous ulcers. 2. Morbid obesity with a BMI 55.7. 3. Hypokalemia, replace. 4. LEVAQUIN allergy. 5. Polycystic ovarian disease. Plan of care was discussed with the patient in detail. She stated understanding.
[2018-08-12] MEDS: Ondansetron PF 4 MG/2 ML Vial IVP PRN (12:54)
[2018-08-12 13:29] VITALS: BP 133/82; TEMP 98.4
== END 2018-08-12 13:30 | disposition home or self-care (01) | DRG 603 ==
LOC: ERS 18:46 → T4-B 19:05
PROVIDERS: ADMIT Internal Medicine; ATTEND Internal Medicine
DX: L03.115 Cellulitis of right lower limb (principal); Z68.43 Body mass index [BMI] 50.0-59.9, adult; I87.2 Venous insufficiency (chronic) (peripheral); E66.01 Morbid (severe) obesity due to excess calories; E87.6 Hypokalemia; E28.2 Polycystic ovarian syndrome; Z88.1 Allergy status to other antibiotic agents
CPT/HCPCS: 36415; 80048; 80053; 80202; 83605; 83735; 85025; 87040; 96361; 96365; 96367; 96375; J0696; J1650; J1885; J2270; J2405; J2543; J3370; J7050

== ENCOUNTER 2019-03-04 08:52 | Emergency (ER) | payer SELFPAY | END 2019-03-04 10:20 | disposition home or self-care (01) | LOC: ERS 08:52 | DX: I83.209 Varicose veins of unspecified lower extremity with both ulcer of unspecified site and inflammation (principal); L97.919 Non-pressure chronic ulcer of unspecified part of right lower leg with unspecified severity; L97.929 Non-pressure chronic ulcer of unspecified part of left lower leg with unspecified severity; L03.115 Cellulitis of right lower limb; L03.116 Cellulitis of left lower limb | CPT/HCPCS: 99283 ==

== ENCOUNTER 2019-06-03 09:37 | Emergency (ER) | payer SELFPAY | END 2019-06-03 13:31 | disposition home or self-care (01) | LOC: ERS 09:37 | DX: I83.018 Varicose veins of right lower extremity with ulcer other part of lower leg (principal); L97.819 Non-pressure chronic ulcer of other part of right lower leg with unspecified severity; E66.9 Obesity, unspecified; Z79.1 Long term (current) use of non-steroidal anti-inflammatories (NSAID) | CPT/HCPCS: 99282 ==

== ENCOUNTER 2019-06-12 14:46 | Outpatient (CLI) | payer SELFPAY ==
[~2019-06-12 14:46] MED LIST: Sodium Chloride 0.9% 15 ML NEB ONE
--- NOTE | 2019-06-12 17:21 | PRG ---
DATE OF SERVICE: 06/12/2019 HISTORY: Ms. Mae Tovar is a very pleasant 44-year-old, who presents to the [facility] for evaluation of 2 ulcerations of the right anterior lower leg. The patient was last seen in the Wound Center on 12/06/2016. At this time, the patient had one ulceration of the right medial lower leg. The patient states that since her last visit, the ulceration never healed. The patient states that for the ulcerations now present, she has received treatment with Silverlon, Medihoney, and Arglaes powder. She states that she has been treated with the [employer] Coban 2 Layer Compression System in addition to the Unna boot. The patient states that with compression wraps, she has experienced slippage of the wraps. The patient reports drainage associated with both ulcerations of the right lower leg. The patient states that the larger ulceration of her right lower leg had been decreasing in size. She states that with greater time spent standing during the course of her work, she experienced an increase in the dimensions of the wound. PAST MEDICAL HISTORY: Polycystic ovarian syndrome. PAST SURGICAL HISTORY: 1. Primary low-transverse section. 2. Cholecystectomy. 3. Vein stripping in 2000 in [place]. MEDICATIONS: Ibuprofen. PHYSICAL EXAMINATION: VITAL SIGNS: Temperature 98.3, pulse 84, temperature 16, and blood pressure 125 /70. EXTREMITIES: Two ulcerations of the right lower leg are present, which measure approximately 2.4 x 2.9 cm and 5.1 x 7.4 cm. Granulation tissue is present within the margins of each wound. No purulent drainage is associated with either wound. No erythema of the skin surrounding either wound is present. No maceration of the skin of the periwound of either wound is noted. A dorsalis pedis pulse is palpable on the right. Significant edema of the right lower leg is present on exam today. ASSESSMENT AND PLAN: 1. 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 Dressing changes of Xeroform gauze will be initiated today. These dressing changes are to be performed on a daily basis after cleansing and irrigation. ABDs and Kerlix will be utilized as secondary dressings. Arrangements will also be made for the home delivery of wraparound compression. The patient has been given a release from work until 06/16/2019. I will see Ms. Tovar again in 4 weeks. 2. Polycystic ovarian syndrome. Job ID: [id number] MTDD
== END 2019-06-12 14:47 | disposition home or self-care (01) ==
LOC: WCC 14:46
PROVIDERS: ATTEND Family Medicine
DX: I83.218 Varicose veins of right lower extremity with both ulcer of other part of lower extremity and inflammation (principal); E28.2 Polycystic ovarian syndrome
CPT/HCPCS: A4218

== ENCOUNTER 2019-07-09 06:36 | Emergency (ER) | payer SELFPAY ==
[2019-07-09 07:27] LABS: #Eosinphils 0.3 thou/uL (0.0-0.7); #Lymphocytes 2.3 thou/uL (1.20-3.40); #Monocytes 0.6 thou/uL (0.11-0.59); #Neutrophils 5.2 thou/uL (1.40-6.50); %Basophils 0.1 % (0.0-1.0); %Eosinophils 3.9 % (0.0-10.0); %Monocytes 7.5 % (0.0-10.0); %Neutrophils 61.6 % (42.0-75.0); Hemoglobin 12.3 g/dL (12.0-16.0); Mean Corpuscular HGB CONC 32.5 g/dL (32.0-36.0); Mean Corpuscular Hemoglobin 27.5 pg (27.0-31.0); Mean Corpuscular Volume 84.6 fL (78.0-98.0); Mean Platelet Volume 7.4 fL (7.4-10.4); Platelet Count 257 thou/uL (130-400); RBC Distribution Width 14.1 % (11.5-14.5); Red Blood Cell (RBC) Count 4.46 mill/uL (4.20-5.40); White Blood Cell (WBC) Count 8.4 thou/uL (4.8-10.8)
--- NOTE | 2019-07-09 07:50 | ULT ---
EXAM: Right lower extremity venous Doppler US HISTORY: Right lower extremity edema and pain FINDINGS: Grayscale, color-flow, Doppler evaluation, spectral analysis of the right lower extremity venous stru ctures is performed with 2-D imaging. The right common femoral, superficial femoral, popliteal, posterior tibial, proximal greater saphenous and profunda femoral veins are imaged. There is normal luminal compressibility, flow, and augmentation the visualized deep venous structures of the right lower extremity. IMPRESSION: No evidence of a deep vein thrombosis in the right lower extremity.
[2019-07-09 07:57] LABS: ALT (SGPT) 13 U/L (8-55); AST (SGOT) 22 U/L (5-34); Albumin 3.3 g/dL (3.5-5.0); Alkaline Phosphatase 64 U/L (40-110); Anion Gap 14 mmol/L (10-20); BUN (Urea Nitrogen) 13 mg/dL (7.0-18.7); Bilirubin, Total 0.4 mg/dL (0.2-1.2); Calc. Creatinine Clearance 0 mL/min (70-130); Calcium 8.4 mg/dL (7.8-10.44); Carbon Dioxide 19 mmol/L (22-29); Chloride 106 mmol/L (98-107); Estimated GFR-MDRD Greater than 90; Globulin 3.7 g/dL (2.4-3.5); Glucose 107 mg/dL (70-105); Potassium 4.6 mmol/L (3.5-5.1); Sodium 134 mmol/L (136-145)
[2019-07-09] MEDS ORDERED: cefTRIAXone\\ROCEPHIN 1 GM VIAL ONE (08:03)
== END 2019-07-09 08:32 | disposition home or self-care (01) ==
LOC: ERS 06:36
DX: L97.814 Non-pressure chronic ulcer of other part of right lower leg with necrosis of bone (principal); E66.9 Obesity, unspecified; Z79.1 Long term (current) use of non-steroidal anti-inflammatories (NSAID)
CPT/HCPCS: 36415; 80053; 85025; 96365; J0696

== ENCOUNTER 2019-08-11 11:42 | Emergency (ER) | payer SELFPAY | END 2019-08-11 13:00 | disposition home or self-care (01) | LOC: ERS 11:42 | DX: J01.90 Acute sinusitis, unspecified (principal); E66.9 Obesity, unspecified | CPT/HCPCS: 99283 ==

== ENCOUNTER 2019-11-02 14:31 | Emergency (ER) | payer OTHER, SELFPAY | END 2019-11-02 18:00 | disposition home or self-care (01) | LOC: ERS 14:31 | DX: L97.919 Non-pressure chronic ulcer of unspecified part of right lower leg with unspecified severity (principal); L81.9 Disorder of pigmentation, unspecified; I87.8 Other specified disorders of veins; J06.9 Acute upper respiratory infection, unspecified; E66.9 Obesity, unspecified | CPT/HCPCS: 99281 ==